=== PATIENT | female | born 2000 | race Caucasian/White ===

== ENCOUNTER 2021-04-15 00:54 | Inpatient (IN) | payer SELFPAY ==
[2021-04-15] VITALS (23 sets, daily range): BP systolic 122–152; BP diastolic 68–96; PULSE 58–107; RESP 15–24; TEMP 35.9–37.1; O2SAT 93–100; BMI 35.6
--- NOTE | 2021-04-15 | XR_ITS ---
WS: [id number] Exam: XR ankle RT 2V [id number] Date/Time of Exam: 04/15/2021 12:00 AM Reason For Exam: ORIF ANKLE Intraoperative C-arm images in the lateral and AP projections are read submitted for evaluation. There is plate and screw fixation involving a fracture of the distal fibula which is in satisfactory alignment for healing. 2 screws now stabilized the fractured medial malleolus in satisfactory alignme nt. Posterior tibial shelf fracture is partially obscured. XR/XR ankle RT 2V [id number] IMPRESSION: 1. ORIF involving fractures of the medial and lateral malleoli. Both are in goo d position for healing.
--- NOTE | 2021-04-15 | SCC_ITS ---
Procedure Done: Open reduction internal fixation right medial and lateral malleolus 18.6 seconds of fluoroscopic guidance, for a cumulative dose of 0.60 mGy, was provided to Dr. Ellis by the radiology department. C-arm images of the RIGHT ankle were saved for the patient's permanent record. [facility]PITALRosanna
--- NOTE | 2021-04-15 01:00 | XRR_ITS ---
PROCEDURE INFORMATION: Exam: XR Right Ankle Exam date and time: 04/15/2021 1:00 AM Age: 21 years old Clinical indication: Injury or trauma; Blunt trauma; Right; Patient HX: Fall just [employer]. C/O pain. Ankle wrapped in makeshift splint upon arrival. TECHNIQUE: Imaging protocol: XR Right ankle. Views: 3 or more views. COMPARISON: No relevant prior studies available. FINDINGS: Bones/joints: There is a lateral malleolus fracture with angulation. There is a medially displaced medial malleolus fracture. There is lateral dislocation at the tibiotalar joint. Soft tissues: Normal. XR/XR ankle RT min 3V* [id number] IMPRESSION: 1. There is a lateral malleolus fracture with angulation. 2. There is a medially displaced medial malleolus fracture. 3. There is lateral dislocation at the tibiotalar joint.
--- NOTE | 2021-04-15 01:01 | ECG_ITS ---
[facility] Test Date: 2021-04-15 Pat Name: Vicki Marcos Department: Room: Gender: Female Button Tufter: : 2000 Requested By: Kenneth Amos Order Number: [id number] Fermin MD: Lazarus Mathews M.D. Measurements Intervals [place] Rate: 92 P: 22 DE: 113 QRS: 70 QRSD: 84 T: 15 QT: 361 QTc: 448 Interpretive Statements SINUS RHYTHM WITH SHORT DE INTERVAL No previous ECG available for comparison Electronically Signed On 04-15-2021 17:32:06 CDT by Lazarus Mathews M.D. [id number] f
--- NOTE | 2021-04-15 01:02 | ED_ITS ---
HPI - Syncope General: Chief Complaint: Syncope Stated Complaint: FALL Time Seen by Provider: 04/15/21 00:57 History of Present Illness: HPI narrative: This patient is a 21-year-old female that lives outside of [place] presents to the emergency department with right ankle pain. Reportedly the patient was standing and cooking became dizzy so she went to sit down actually tripped over the dog and fell. Patient denies any loss of consciousness. Patient states that she has had issues with dizziness and syncopal episodes in the past. Patient states she did not want to come to the hospital. And [place] advised EMS that she would like to go to [facility] and patient states that the ambulance service advised the patient would be best to come to [place]. Patient states that her last menstrual period was 01 March patient states her periods are always irregular and sometimes pretty heavy. Will do medical evaluation treat as needed MD complaint: felt faint Associated symptoms: Deny abdominal pain, chest pain, fever(s), headache(s), lightheadedness or nausea Review of Systems General: Reports: 10 or more systems reviewed and unremarkable except in HPI and below Const: Denies: fever(s), chills, body aches or fatigue Eyes: Denies: change in vision or blurry vision ENMT: Denies: throat pain, hoarseness or mouth pain Card: Denies: chest pain, palpitations, irregular heart rhythm, edema, swelling of feet/ankles or lightheadedness Resp: Denies: dyspnea, productive cough, non-productive cough, wheezing or pain on inspiration GI: Denies: abdominal pain, nausea or vomiting : Denies: flank pain, difficulty voiding, dysuria, urinary frequency, urinary urgency or urinary hesitancy Musc: Reports: extremity pain; Denies: neck pain, back pain, extremity swelling, joint pain, joint swelling, joint redness, joint warmth or limited range of motion Skin/Breast: Denies: rash, pruritus, erythema or skin tenderness Neuro: Reports: dizziness; Denies: headache(s), numbness in extremities or weakness in extremities Psych: Denies: anxiety or depression Physical Exam Const: COMMON NORMALS: no acute distress, average body habitus, patient oriented x3, no limitations, healthy appearing, alert and well nourished HENMT: COMMON NORMALS: normocephalic, atraumatic, hearing grossly normal bilaterally, external ears normal, EAC's normal, TM's normal bilaterally, Normal external nose present, Normal nasal mucous membranes and turbinates present, moist oral mucous membranes, oropharynx normal, dentition normal and gingiva normal HEAD & SCALP: normocephalic and atraumatic NOSE: Normal external n ose present and Normal nasal mucous membranes and turbinates present EXTERNAL EAR: Yes external ears normal EXTERNAL AUDITORY CANAL: EAC's normal TYMPANIC MEMBRANE: TM's normal bilaterally Neck/C-Spine: COMMON NORMALS: full ROM, no lymphadenopathy, supple, no meningeal signs, no JVD, Thyroid normal and No carotid bruits THYROID: Thyroid normal Chest: COMMONS NORMALS: normal inspection of the chest, normal palpation of entire chest wall, normal inspection of the breasts and normal palpation of the breasts Breast/axilla inspection: Yes normal inspection of the breasts BREAST/AXILLA PALPATION: Yes normal palpation of the breasts Resp: COMMON NORMALS: normal respiratory effort, No retractions, No use of accessory muscles, clear to auscultation bilaterally and percussion normal AUSCULTATION: clear to auscultation bilaterally PERCUSSION: percussion normal Cardio: COMMON NORMALS: no JVD, regular rate, regular rhythm, S1 normal heart sound present, S2 normal heart sound present, No gallops present (Cardio), No clicks present (Cardio), No murmurs present (Cardio), No rub (Cardio) and Luz Maria pheral pulses 2+ throughout RATE: regular rate RHYTHM: regular rhythm HEART SOUNDS: S1 normal heart sound present and S2 normal heart sound present PERIPHERAL PULSES: Peripheral pulses 2+ throughout GI: COMMON NORMALS: Normal to inspection, nondistended, normoactive bowel sounds present, Soft to palpation, non-tender, No hepatosplenomegaly present, no masses and no bruits PALPATION: Yes Soft to palpation and Yes No hepatosplenomegaly present : COMMON NORMALS: Yes no CVA tenderness BLADDER/KIDNEY EXAM: Yes no CVA tenderness Back/Pelvis: COMMON NORMALS: no CVA tenderness, thoracic and lumbar spine normal to inspection, no thoracic nor lumbar tenderness, thoraco-lumbar ROM normal and straight leg raise negative bilaterally Extremity: COMMON NORMALS: capillary refill normal, no joint enlargement, no clubbing, cyanosis or edema, no calf tenderness and no pedal edema RIGHT LOWER EXTREMITY: Yes foot & digits Right ankle: Yes inspection (Patient complains of pain with range of motion. Patient has splint intact ) Neuro: COMMON NORMALS: patient oriented x3 SENSORIUM/ORIENTATION: Yes alert MENINGEAL SIGNS: Yes no meningeal signs Procedures Orthopedic Joint Reduction Joint #1: Time Out Performed: Yes Side: right Joint Reduction Location: ankle Analgesia: procedural sedation Technique used: direct manipulation Post-reduction neuro exam: intact Post-reduction vascular: intact Post Reduction X-Ray Obtained: Yes Post Reduction X-Ray Results: reduced Splint Applied: Yes Patient Tolerated Procedure: well Orthopedic Splinting/Casting Injury #1: Side: right Lower Extremity Injury Location: ankle Lower Extremity Immobilizer: posterior splint Procedural Sedation Indication: fracture/dislocation reduction Presedation Evaluation: Clear to auscultate class I airway. Consent given by patient ASA Class: I Time of Last PO Intake: 20:30 Preparation: cardiac nurse specialist applied, pulse oximeter, capnometry used, supplemental O2 applied, reversal agents at bedside, suction/airway equipment at bedside and IV secured Midazolam: IV Midazolam dose (mg): 1 Ketamine: IV Ketamine dose (mg): 100 Patient Tolerated Procedure: well Complications: none Additional Comments: Patient was given 1 mg of Dilaudid, 1 mg of Versed, and 100 mg of ketamine. Patient tolerated well without difficulty. Course Reevaluation(s): Reevaluation #1: I discussed at length with patient and about findings of a bimalleolar fracture with dislocation. She is agreeable for reduction and admission to the hospital. Time: 02:18 Reevaluation #2: Conscious sedation for patient. With reduction of right ankle dislocation fracture. Patient will have surgical repair fracture in the morning with Dr. Ellis. Time: 02:35 Consultations: Consultation #1: I did discuss at length with Dr. Ellis orthopedics. He agrees for us to straighten leg and place in posterior splint. Admitted to the hospital and he will take to the OR in the morning. Time: 02:18 Vital Signs: Vital signs: Vital Signs Temperature 97.6 F 04/15/21 00:57 Pulse Rate 86 04/15/21 02:16 Respiratory Rate 19 H 04/15/21 02:16 Blood Pressure 122/68 04/15/21 02:16 Pulse Oximetry 100 04/15/21 02:16 MDM - Syncope Lab Data: Labs: Lab Results 04/15/21 04/15/21 Range/Units 01:03 01:03 WBC 13.0 H (4.0-10.0) 10^3/ uL RBC 4.29 (4.1-5.3) 10^6/u L Hgb 12.4 (11.5-15.3) g/dL Hct 38.9 (37.0-47.0) % MCV 90.7 (81-99) fL MCH 28.9 (28.0-34.0) pg MCHC 31.9 (30.0-36.0) g/dL RDW 13.1 (12.1-15.1) % Plt Count 232 (130-400) 10^3/c mm MPV 10.3 (7.4-10.4) fL Neut % (Auto) 78.7 % Lymph % (Auto) 13.9 % Beckham % (Auto) 5.6 % Eos % (Auto) 0.8 % Baso % (Auto) 0.4 % Neut # (Auto) 10.25 H (1.8-7.7) 10^3/u L Lymph # (Auto) 1.8 (0.8-4.8) 10^3/u L Beckham # (Auto) 0.7 (0.2-0.9) 10^3/u L Eos # (Auto) 0.1 (0.0-0.8) 10^3/u L Baso # (Auto) 0.1 (0.0-0.1) 10^3/u L Nucleated RBC % (a uto) 0 % Nucleated RBCs # 0.0 /100WBC Sodium 138 (136-145) mmol/L Potassium 3.7 (3.5-5.1) mmol/L Chloride 101 (98-107) mmol/L Carbon Dioxide 23 (22-29) mmol/L Anion Gap 17.7 (5-19) BUN 9 (6-20) mg/dL Creatinine 0.7 (0.5-0.9) mg/dL GFR Calculation 105.6 (90-130) mL/min Glucose 187 H (65-115) mg/dL Calculated Osmolal ity 290 (285-295) mOsm/k g Calcium 8.9 (8.5-10.5) mg/dL EKG Data^: EKG 1: Attestation: I personally reviewed and interpreted this EKG as follows: EKG interpretation date: 04/15/21 EKG interpretation time: 01:13 Prior EKG tracings: not available for review Interpretation: Sinus rhythm heart rate 92 Discharge Plan Discharge Patient Disposition: Placed in Observation Clinical Impression: Bimalleolar fracture of right ankle, Postural dizziness with near syncope, Closed dislocation of ankle Coding Level of Care Code ED Capacity Management Specialist for Chg Fwd Exam Comprehensive
[2021-04-15 01:10] LABS: Basophils # 0.1 10^3/uL (0.0-0.1); Basophils % 0.4 %; Eosinophils # 0.1 10^3/uL (0.0-0.8); Eosinophils % 0.8 %; Hematocrit 38.9 % (37.0-47.0); Hemoglobin 12.4 g/dL (11.5-15.3); Lymphocytes # 1.8 10^3/uL (0.8-4.8); Lymphocytes % 13.9 %; Mean Corpuscular HGB Conc 31.9 g/dL (30.0-36.0); Mean Corpuscular Hemoglobin 28.9 pg (28.0-34.0); Mean Corpuscular Volume 90.7 fL (81-99); Mean Platelet Volume 10.3 fL (7.4-10.4); Monocytes # 0.7 10^3/uL (0.2-0.9); Monocytes % 5.6 %; Neutrophils # 10.25 10^3/uL (1.8-7.7); Neutrophils % 78.7 %; Nucleated Red Blood Cells % 0 %; Platelet Count 232 10^3/cmm (130-400); Red Blood Count 4.29 10^6/uL (4.1-5.3); Red Cell Distribution Width 13.1 % (12.1-15.1)
[2021-04-15 01:28] LABS: Anion Gap 17.7 (5-19); Blood Urea Nitrogen 9 mg/dL (6-20); Calcium 8.9 mg/dL (8.5-10.5); Carbon Dioxide 23 mmol/L (22-29); Chloride 101 mmol/L (98-107); Glomerular Filtration Rate 105.6 mL/min (90-130); Glucose 187 mg/dL (65-115); Osmolality Calculated 290 mOsm/kg (285-295); Potassium 3.7 mmol/L (3.5-5.1); Sodium 138 mmol/L (136-145)
[2021-04-15] MEDS: midazolam 1 mg/mL INJ 2 mL IVP (02:34)
[2021-04-15] MEDS: HYDROmorphone 1 mg/mL INJ 1 mL IVP (02:35)
--- NOTE | 2021-04-15 02:39 | XRR_ITS ---
PROCEDURE INFORMATION: Exam: XR Right Ankle Exam date and time: 04/15/2021 2:39 AM Age: 21 years old Clinical indication: Injury or trauma; Fall; Fracture, traumatic; Displaced; Ankle; Right; Malleolus, lateral and malleolus, medial; Patient HX: Check S/P reduction. ; Additional info: Post reduction TECHNIQUE: Imaging protocol: XR Right ankle. Views: 1 or 2 views. COMPARISON: CR (LOW EXM, ) 04/15/2021 1:06 AM FINDINGS: Tubes, catheters and devices: Splint material has been placed. Bones/joints: There is partial reduction of medial and lateral malleolus fractures and tibiotalar dislocation. Soft tissues: Normal. XR/XR ankle RT 2V [id number] IMPRESSION: There is partial reduction of medial and lateral malleolus fractures and tibiotalar dislocation.
[2021-04-15 04:29] LABS: Add Urine Microscopic? NO; Charge for UA Resulting for Rev
[2021-04-15 04:33] LABS: Bilirubin Urine Neg (Negative); Blood Urine Neg (Negative); Glucose Urine UA Norm (Normal); Ketones Urine Negative (Negative); Leukocyte Esterase Urine Negative (Negative); Nitrate Urine Negative (Negative); Protein Urine Neg (Negative); Urine Appearance Clear (CLEAR); Urine Color Yellow (Yellow); Urobilinogen Urine Norm (Negative); pH Urine 5 (5-7)
[2021-04-15 04:39] LABS: Amphetamines Screen Urine Negative (Negative); Barbiturates Screen Urine Negative (Negative); Benzodiazepines Screen Urine Negative (Negative); Cocaine Screen Urine Negative (Negative); Opiate Screen Urine Positive (Negative); PCP Screen Urine Negative (Negative); THC Screen Urine Positive (Negative)
[2021-04-15 04:49] LABS: HCG Qualitative Urine. Negative (Negative)
--- NOTE | 2021-04-15 05:06 | USCV_ITS ---
Vicki Marcos Age: 21 Gender: F : 2000 Exam Date: 04/15/2021 06:11 Ordering Phys: Gabi Egan MD Technologist: Sarahi Louis Exam Location: [facility] [place] Indication: SYNCOPE BP: 130 / 79 HR: 65 Rhythm: Sinus Technical Quality: Adequate MEASUREMENTS (Male / Female) Normal Values 2D ECHO LV Diastolic Diameter PLAX 3.9 cm 4.2 - 5.9 / 3.9 - 5.3 cm LV Systolic Diameter PLAX 2.7 cm IVS Diastolic Thickness 1.3 cm 0.6 - 1.0 / 0.6 - 0.9 cm IVS Systolic Thickness 2.5 cm LVPW Diastolic Thickness 1.3 cm 0.6 - 1.0 / 0.6 - 0.9 cm LVPW Systolic Thickness 2.0 cm LVOT Diameter 2.0 cm LV Ejection Fraction 2D Teich 54.7 % LV Ejection Fraction MOD 2C 64.6 % LV Ejection Fraction 2C AL 67.2 % LA Diameter 3.3 cm LA Width 2.5 cm LA Height 4.1 cm RA Width 2.5 cm RA Height 4.0 cm Aorta at Sinotubular Diameter 2.3 cm M-MODE LV Diastolic Diameter MM 3.1 cm 4.2 - 5.9 / 3.9 - 5.3 cm LV Systolic Diameter MM 1.8 cm LV Ejection Fraction MM Teich 72.5 % IVS Diastolic Thickness MM 1.0 cm 0.6 - 1.0 / 0.6 - 0.9 cm IVS Systolic Thickness MM 1.9 cm LVPW Diastolic Thickness MM 1.2 cm 0.6 - 1.0 / 0.6 - 0.9 cm LVPW Systolic Thickness MM 1.3 cm Aortic Annulus Diameter 2.6 cm LA Ao Ratio MM 1.4 MV E Point Septal Separation 0.3 cm DOPPLER AV Peak Velocity 156.0 cm/s LVOT Peak Velocity 75.0 cm/s AV Area Cont Eq vti 1.4 cm squared AV Area Cont Eq pk 1.5 cm squared MV Peak Velocity 111.0 cm/s MV Area PHT 2.7 cm squared Mitral E to A Ratio 2.1 MV E' Velocity 61.0 cm/s Mitral E to MV E' Ratio 6.7 Mitral E to LV E' Lateral Ratio 5.4 Mitral E to LV E' Septal Ratio 8.7 TR Peak Velocity 124.0 cm/s TR Peak Gradient 6.2 mmHg TV Peak E Velocity 65.0 cm/s Right Atrial Pressure 3.0 mmHg Pulmonary Artery Systolic Pressu 9.2 mmHg PV Peak Velocity 123.0 cm/s RV Acceleration Time 0.1 s RV Ejection Time 0.4 s RV AcT/ET 0.3 FINDINGS Left Ventricle Normal left ventricular size. LV systolic function is normal with EF of 55-60%. No regional wall motion abnormalities. Normal diastolic filling pattern. Right Ventricle The right ventricle is normal in size and function. Right Atrium The right atrium is normal in size. Left Atrium The left atrium is normal in size. Mitral Valve Structurally normal mitral valve without significant stenosis or prolapse. There is trace mitral regurgitation. Aortic Valve Structurally normal aortic valve without significant sclerosis or stenosis. There is no aortic regurgitation. Tricuspid Valve Structurally normal tricuspid valve without significant stenosis or regurgitation. Insufficient TR jet to calculate RVSP Pulmonic Valve Structurally normal pulmonic valve without significant stenosis. There is trace pulmonic regurgitation. Pericardium Normal pericardium without effusion. Aorta Normal ascending aorta dimension. CONCLUSIONS LV systolic function is normal with EF of 55-60% Diastolic function is normal Trace mitral regurgitation. Trace pulmonic regurgitation No comparison studies are available Lazarus Mathews MD (Electronically Signed) Final Date: 15 April 2021 17:47 S
--- NOTE | 2021-04-15 05:07 | P.HP_ITS ---
Providers/Chief Complaint Admitting Physician: Gabi Egan Chief Complaint: FALL History of Present Illness Vicki Marcos is a 21 year old female With a past medical history significant for anxiety, partial dizziness with prior episode of syncope who presented to the hospital with syncopal event and right lower extremity pain. Patient stated that while in the kitchen making dinner she became very nauseous and lightheaded. She went to sit down however Does not recall any events afterwards. She was told by her friend that she had tripped over her dog and fell. Loss of consciousness lasted briefly. No seizure-like activity. On a rrival an right ankle x-ray showed a lateral malleolus fracture with angulation, medially displaced medial malleolar fracture and a lateral dislocation at the tibiotalar joint. Orthopedic surgery was consulted. Prior to that patient's this location was reduced after receiving Dilaudid and ketamine. Laboratory workup showed a WBC of 13.0, hemoglobin 12.4, hematocrit 38.9 and a platelet count of 232. Sodium 138, potassium 3.7, chloride 101, bicarb 23, BUN 9 and creatinine is 0.7. Urinary drug screen positive for opioids and marijuana. Urinalysis was negative. Review of Systems General: Reports: 10 or more systems reviewed and unremarkable except in HPI and below Medications/Allergies Allergies Allergy/AdvReac Type Severity Reaction Status Date / Time No Known Allergies Allergy Verified 03/02/21 15:15 Vitals/I&O/Wt Last Vital Signs Temp 97.8 F 04/15/21 04:00 Pulse 83 04/15/21 04:00 Resp 20 H 04/15/21 04:00 BP 130/79 04/15/21 04:00 Pulse Ox 96 04/15/21 04:00 Weight last 48 hrs Weight 116.12 kg Physical Exam Narrative: EXAM NARRATIVE: General-alert awake and oriented x3 HEENT-grossly unremarkable CVS-normal sinus rhythm Chest-nonlabored respirations Abdomen-soft nontender nondistended Extremities-right lower extremity splint and Edward wrap in place Urinary Catheter Management^: Garnett: Cath Placed During This Visit: yes Urinary Catheter Date of Insertion: 04/15/21 Urinary Catheter Time of Insertion: 04:26 Data : 04/15/21 01:03 04/15/21 01:03 A&P Assessment and plan (1) Bimalleolar fracture of right ankle: Status: Acute (2) Syncopal episodes: Status: Acute Bimalleolar fracture with L. tibiotalar joint dislocation Partially Reduced in ER w/right post splint placement Pain control NPO Orthopedic surgery on board PT consult Syncopal episode Etiology unclear Will obtain ECHO Records not available for prior EKG - NSR, normal QT interval Monitor on telemetry TSH /A1C in am DVT ppx - Per ortho - like OR this am Attestations Medical Necessity Statement*: Anticipate less than 2 midnight stay in hospital for eval and treatment Time Spent in Patient Care: Greater than 35 minutes (>than 50% of time spent in counselling and/or direct pt care on unit) . Coding Level of Care Code Acute Copper Plate Lithographer for Marvin Garcia Diagnoses Bimalleolar fracture of right ankle S82.841A Syncopal episodes R55
[2021-04-15] MEDS: sodium chloride 0.9% 1,000 ML 75 ML IV (06:45)
--- NOTE | 2021-04-15 07:04 | PM.CONSULT ---
Providers/Reason For Consult Consulting Physician/Specialty*: Zackary Ellis MD; orthopedic surgery Reason for Consult*: Right trimalleolar ankle fracture Attending Physician: Gabi Egan History of Present Illness History of Present Illness Vicki Marcos is a 21 year old female who sustained a syncopal episode at her kitchen sink yesterday. She describes feeling nauseous vomiting losing consciousness and falling to the ground and awakening with the deformity and pain in her ankle. She was taken by EMS to our emergency room where radiographs revealed a trimalleolar ankle fracture. Attempted closed reduction was performed. She is admitted to orthopedics for definitive management of the fracture. Meds/Allergies Home Medications and Allergies Allergies Allergy/AdvReac Type Severity Reaction Status Date / Time No Known Allergies Allergy Verified 03/02/21 15:15 Current Medications Current Medications Generic Name Dose Route Start Last Admin Trade Name Freq PRN Reason Stop Dose Admin Sodium Chloride 1,000 mls @ 75 mls/hr 04/15/21 05:15 04/15/21 06:45 Sodium Chloride 0.9% IV 75 mls/hr .[id number] PATRICE Administration Vitals/I&O/Wt Last Vital Signs Temp 97.8 F 04/15/21 04:00 Pulse 83 04/15/21 04:00 Resp 20 H 04/15/21 04:00 BP 130/79 04/15/21 04:00 Pulse Ox 96 04/15/21 04:00 04/14/21 04/15/21 04/15/21 22:59 06:59 14:59 Output Total 100 / 100 Balance -100 / -100 Weight last 48 hrs Weight 256 lb Physical Exam Narrative: EXAM NARRATIVE: HEAD: Normocephalic/atraumatic. NECK: Soft supple nontender. HEART: Normal heart sounds, regular rhythm. CHEST: Clear to auscultation. ABDOMEN: Soft nontender nondistended. The patient's right ankle was splinted. She will minimally move her toes due to pain but has good capillary refill in the tips of her digits. Sensation is intact to the tips of the digits Urinary Catheter Management^: Garnett: Cath Placed During This Visit: yes Reason for Continuing Indwelling Catheter: Perioperative Use in Selected Surgeries Urinary Catheter Date of Insertion: 04/15/21 Urinary Catheter Time of Insertion: 04:26 Data Imaging^: Xray Ortho: My impression: 3 views the right ankle are reviewed labeled pre and post reduction. The patient has a fracture dislocation of the right ankle consisting of trimalleolar ankle fracture which is incompletely reduced on postreduction films. A&P Assessment and plan (1) Trimalleolar fracture of right ankle: The patient had unstable right ankle fracture. I told the patient to ensure the best long-term function and minimize risk of arthritis surgery be warranted to aligned the talus in the mortise. She is young reasonably healthy I think this can be done acutely with minimal risk. I discussed risk of bleeding and infection. Discussed risk of wound breakdown which in a patient in good health is is minimal. I discussed possible painful hardware. I discussed possibility of stiffness and future degenerative changes. I discussed the possible need for further procedures. I discussed unlikely anesthetic risk. She understands all these and agrees to proceed we'll proceed to the OR sometime today. Status: Acute Coding Level of Care Code Acute Sheet Rock Installation Helper for Marvin Garcia Diagnoses Trimalleolar fracture of right ankle S82.851A
[2021-04-15] MEDS: HYDROcodone-acetaminophen 5-325 mg Tablet 1 TAB PO (08:15)
--- NOTE | 2021-04-15 11:13 | PC.NURSE ---
surgery pt was taken down for surgery.
--- NOTE | 2021-04-15 11:18 | PM.PN ---
Subjective Subjective: Interval history: Patient seen postoperatively. Mildly groggy. Complaining of pain. Vitals/I&O/Wt Last Vital Signs Temp 97.8 F 04/15/21 07:55 Pulse 75 04/15/21 07:55 Resp 16 04/15/21 07:55 BP 128/78 04/15/21 07:55 Pulse Ox 99 04/15/21 07:55 04/14/21 04/15/21 04/15/21 22:59 06:59 14:59 Output Total 100 / 100 Balance -100 / -100 Weight last 48 hrs Weight 116.12 kg Physical Exam Narrative: EXAM NARRATIVE: General-alert awake and oriented x3 HEENT-grossly unremarkable CVS-normal sinus rhythm Chest-nonlabored respirations Abdomen-soft nontender nondistended Extremities-right lower extremity in surgical splint Urinary Catheter Management^: Garnett: Cath Placed During This Visit: yes Reason for Continuing Indwelling Catheter: Perioperative Use in Selected Surgeries Urinary Catheter Date of Insertion: 04/15/21 Urinary Catheter Time of Insertion: 04:26 Data : 04/16/21 01:58 04/16/21 01:58 A&P Assessment and plan (1) Bimalleolar fracture of right ankle: Status: Acute (2) Syncopal episodes: Status: Acute Bimalleolar fracture with L. tibiotalar joint dislocation: Postoperative day 0. Appreciate orthopedics recommendation. Luz Maria-operative antibiotics, Physical therapy, pain control, anticoagulation as per orthopedic team. Incentive spirometry. Monitor hemoglobin. Syncopal episode: Etiology unclear. Unlikely seizure as was witnessed. Will obtain ECHO, c/w telemetry. TSH, A1c. Urine drug screen results appreciated. Regular diet. Anticoagulation as per orthopedic team. Famotidine for PUD prophylaxis. Attestations Medical Necessity Statement*: Vicki Bonds is being changed to inpatient status as stay will now exceed 2 midnights. Ongoing hospital care is necessary for bimalleolar fracture with left fibular talar joint dislocation requiring open fixation, syncope under evaluation. Time Spent in Patient Care: Greater than 35 minutes (>than 50% of time spent in counselling and/or direct pt care on unit). Coding Level of Care Code Acute Workforce Management Coordinator for Marvin Fwnazanin Diagnoses Bimalleolar fracture of right ankle S82.841A Syncopal episodes R55
--- NOTE | 2021-04-15 11:33 | P.ANESASSM_ITS ---
Pre-Anesthetic Assessment Pre-Anesthetic Assessment: Height/Weight: Height 1.8 m Weight 116.12 kg Temp Pulse Resp BP Pulse Ox 96.7 F L 83 18 147/85 100 04/15/21 11:20 04/15/21 11:20 04/15/21 11:20 04/15/21 11:20 04/15/21 11:20 Proposed Procedure: Operation Date: 04/15/21 12:00 Proposed Procedures p ORIF Ankle(Right) - Zackary Ellis MD Was Beta Ramírez taken within 24 hours: N/A Was Clonidine taken within 24 hours: N/A Last intake: Intake Last Liquid Date 04/14/21 Last Liquid Time 23:30 Last Solid Date 04/14/21 Last Solid Time 23:30 Social: Social History: No alcohol and No tobacco Exam: Pre-Anes Outpt Exam: alert, oriented x 3, clear to auscultation b ilaterally and regular rate & rhythm Airway: Submandibular: WNL Cervical ROM: WNL MP: 2 Dentition: Full History/ROS: No significant history except as noted Metabolic: Metabolic: Morbid obesity Neuropsych: Comments: Syncope Anesthetic Plan: ASA status: 2 Anesthesia: General Risk of > 500 ml blood loss (7ml/kg in children): No Meds/Allergies Current Medications: Current Medications Generic Name Dose Route Start Last Admin Trade Name Freq PRN Reason Stop Dose Admin Hydrocodone Bitart /Acetaminophen 1 tab 04/15/21 05:04 04/15/21 08:15 Hydrocodone-Acet aminophen 5-325 Mg Tablet PO 1 tab Q4H PRN Administration MODERATE TO SEVER E PAIN Sodium Chloride 1,000 mls @ 75 ml s/hr 04/15/21 05:15 04/15/21 06:45 Sodium Chloride 0.9% IV 75 mls/hr .[id number] PATRICE Administration Data Anesthesia CBC & Chem 7: 04/15/21 01:03 04/15/21 01:03 Other Labs: Laboratory Results - last 48 hr 04/15/21 04/15/21 04/15/21 01:03 01:03 04:22 WBC 13.0 H RBC 4.29 Hgb 12.4 Hct 38.9 MCV 90.7 MCH 28.9 MCHC 31.9 RDW 13.1 Plt Count 232 MPV 10.3 Neut % (Auto) 78.7 Lymph % (Auto) 13.9 Mcmullen % (Auto) 5.6 Eos % (Auto) 0.8 Baso % (Auto) 0.4 Neut # (Auto) 10.25 H Lymph # (Auto) 1.8 Mcmullen # (Auto) 0.7 Eos # (Auto) 0.1 Baso # (Auto) 0.1 Nucleated RBC % (auto) 0 Nucleated RBCs # 0.0 Sodium 138 Potassium 3.7 Chloride 101 Carbon Dioxide 23 Anion Gap 17.7 BUN 9 Creatinine 0.7 GFR Calculation 105.6 Glucose 187 H Calculated Osmolality 290 Calcium 8.9 HCG, Qual Urine Color Yellow Urine Appearance Clear Urine pH 5 Ur Specific [place] 1.020 Urine Protein Neg Urine Glucose (UA) Norm Urine Ketones Negative Urine Blood Neg Urine Nitrate Negative Urine Bilirubin Neg Urine Urobilinogen Norm Ur Leukocyte Esterase Negative Urine Opiates Screen Ur Barbiturates Screen Ur Phencyclidine Scrn Ur Amphetamines Screen U Benzodiazepines Scrn Urine Cocaine Screen U Marijuana (THC) Screen 04/15/21 04/15/21 04:22 04:22 WBC RBC Hgb Hct MCV MCH MCHC RDW Plt Count MPV Neut % (Auto) Lymph % (Auto) Mcmullen % (Auto) Eos % (Auto) Baso % (Auto) Neut # (Auto) Lymph # (Auto) Mcmullen # (Auto) Eos # (Auto) Baso # (Auto) Nucleated RBC % (auto) Nucleated RBCs # Sodium Potassium Chloride Carbon Dioxide Anion Gap BUN Creatinine GFR Calculation Glucose Calculated Osmolality Calcium HCG, Qual Negative Urine Color Urine Appearance Urine pH Ur Specific [place] Urine Protein Urine Glucose (UA) Urine Ketones Urine Blood Urine Nitrate Urine Bilirubin Urine Urobilinogen Ur Leukocyte Esterase Urine Opiates Screen Positive H Ur Barbiturates Screen Negative Ur Phencyclidine Scrn Negative Ur Amphetamines Screen Negative U Benzodiazepines Scrn Negative Urine Cocaine Screen Negative U Marijuana (THC) Screen Positive H Cardiac Studies: No Data to Display
[2021-04-15] MEDS: sodium chloride 0.9% 1,000 ML 30 ML IV (11:47)
--- NOTE | 2021-04-15 13:40 | PM.OP ---
Operative Report Date of procedure: April 15, 2021 Pre-op Diagnosis: Right trimalleolar ankle fracture Post-op diagnosis: same Post-op Findings: Same Procedure Done: Open reduction internal fixation right medial and lateral malleolus Surgeon: Zackary Ellis Anesthesia: General Estimated blood loss (mL): 10 Tourniquet time (min): 50 Findings: The patient had oblique fracture of the beginning at the level of the mortise and extending slightly proximally. She had a oblique fracture of the lateral malleolus at the level of the mortise. There is posterior lateral subluxation of the talus in the mortise initially. Condition: stable Disposition: PACU Brief History: The patient is a 22-year-old following with resulting right trimalleolar ankle fracture/dislocation. As she was healthy with a good soft tissue envelope surgical stabilization was entertained acutely. Procedure: The patient was taken to the operating room and given a general anesthesia. She was given 2 g of Ancef. She was prepped and draped in the supine position with a tourniquet on the right thigh. The tourniquet was inflated for 50 mmHg. Initially a 4 cm long incision was made centered over the medial malleolus. Dissection was carried down bluntly identified branches of the saphenous vein. The fracture was identified and held reduced with a towel clamp. 2 partially threaded 4.0 mm Asnis screws with washers were passed from the tip of the medial malleolus proximally maintaining reduction of that fracture. Next a 5 cm long incision made from the tip of the lateral malleolus proximally. The oblique fracture was held reduced with a clamp and fixed initially with a single anterior posteriorly partially threaded screw. A posterior lateral neutralization was placed. It was fixed with 3 nonlocking screws proximally and 1 nonlocking and locking screws distally. A third nonlocking screw was placed through the third hole in the bottom traversing the fracture site. Wounds were irrigated with saline. Deep tissues were closed with 2-0 Vicryl. The skin was closed with skin imani. Sterile dressings were applied. The patient was placed in a postop boot, extubated, and taken to recovery in stable condition.
--- NOTE | 2021-04-15 14:01 | ANE.PACU2 ---
Inpatient post-anesthesia follow up: Airway intact: Yes Vital signs: Temperature 98.5 F Pulse Rate [Monito r] 100 Pulse Rate 63 Respiratory Rate 16 Blood Pressure 150/79 Pulse Oximetry 96 Oxygen Delivery Me thod Room Air Oxygen Flow Rate 6 Fraction of Inspir ed Oxygen Hydration adequate: Yes Nausea and vomiting: No Pain level: 3 Mental status: Baseline
[2021-04-15] MEDS: ondansetron 2 mg/ML SDV 2 mL 4 MG IVP (15:16)
[2021-04-15] MEDS: oxyCODONE 5 mg IR Tab/Cap PO ×2 (15:43→22:08)
[2021-04-15 16:21] LABS: Iron 43 ug/dL (37-145); Percent Saturation 13.7 % (20-50); Total Iron Binding Capacity 312 mcg/dl; Unsaturated Iron Binding 269 ug/dL (112-347)
[2021-04-15] MEDS: acetaminophen 1,000 MG/100 ML PIGGYBACK 400 MG IV (17:45)
[2021-04-15] MEDS: LORazepam 0.5 mg Tablet PO (17:45)
[2021-04-16] VITALS (11 sets, daily range): BP systolic 116–150; BP diastolic 75–95; PULSE 72–92; RESP 14–24; TEMP 36.4–37.1; O2SAT 97–99
[2021-04-16] MEDS: morphine 4 mg/mL SDV 1 mL 2 MG IVP ×2 (01:00→08:02)
[2021-04-16 02:43] LABS: Basophils % 0.3 %; Eosinophils % 0.2 %; Hematocrit 40.5 % (37.0-47.0); Hemoglobin 12.6 g/dL (11.5-15.3); Lymphocytes # 1.1 10^3/uL (0.8-4.8); Lymphocytes % 8.7 %; Mean Corpuscular HGB Conc 31.1 g/dL (30.0-36.0); Mean Corpuscular Hemoglobin 28.8 pg (28.0-34.0); Mean Corpuscular Volume 92.5 fL (81-99); Mean Platelet Volume 10.2 fL (7.4-10.4); Monocytes # 0.9 10^3/uL (0.2-0.9); Monocytes % 7.3 %; Nucleated Red Blood Cells % 0 %; Platelet Count 194 10^3/cmm (130-400); Red Blood Count 4.38 10^6/uL (4.1-5.3); Red Cell Distribution Width 12.9 % (12.1-15.1); White Blood Count 12.4 10^3/uL (4.0-10.0)
[2021-04-16] MEDS: oxyCODONE 5 mg IR Tab/Cap PO ×2 (02:43→06:27)
[2021-04-16 03:05] LABS: Estmated Average Glucose 114; Hemoglobin A1C 5.6 % (4.0-6.0)
[2021-04-16 03:14] LABS: Alanine Aminotransferase 9 U/L (0-33); Albumin Level 3.8 g/dL (3.5-5.2); Alkaline Phosphatase 73 IU/L (35-105); Anion Gap 17.3 (5-19); Aspartate Amino Transferase 8 U/L (0-32); Blood Urea Nitrogen 5 mg/dL (6-20); Calcium 9.5 mg/dL (8.5-10.5); Carbon Dioxide 23 mmol/L (22-29); Chloride 100 mmol/L (98-107); Globulin 3.4 g/dL (1.3-4.6); Glomerular Filtration Rate 201.5 mL/min (90-130); Glucose 124 mg/dL (65-115); Osmolality Calculated 281 mOsm/kg (285-295); Potassium 4.3 mmol/L (3.5-5.1); Sodium 136 mmol/L (136-145); Thyroid Stimulating Hormone 1.04 uIU/mL (0.27-4.20); Total Bilirubin 0.4 mg/dL (0.15-1.2); Total Protein 7.2 g/dL (6.6-8.7)
--- NOTE | 2021-04-16 05:04 | PC.NURSE ---
SHIFT NOTE patient c/o pain to right ankle most of this shift, new order received for morphine for breakthrough pain. nurse observed that pt is quiet until staff enters room then pt begins moaning and moaning increases the longer staff remains in room. pain meds utilized for pain management
--- NOTE | 2021-04-16 06:53 | PC.NURSE ---
menses started this morning
[2021-04-16] MEDS: aspirin 325 mg EC Tablet PO (07:58)
--- NOTE | 2021-04-16 08:16 | P.PN_ITS ---
Subjective Subjective: Interval history: Still complains of pain right ankle more than left Vitals/I&O/Wt Last Vital Signs Temp 97.5 F L 04/16/21 08:04 Pulse 91 04/16/21 08:04 Resp 19 H 04/16/21 08:04 BP 138/78 04/16/21 08:04 Pulse Ox 98 04/16/21 08:04 04/15/21 04/16/21 04/16/21 22:59 06:59 14:59 Intake Total 2100 / 2150 Output Total 1000 / 1100 2050 / 3150 Balance 1100 / 1050 -2050 / -1000 Weight last 48 hrs Weight 256 lb Physical Exam Narrative: EXAM NARRATIVE: Right ankle in boot. Good capillary refill of digits. Sensation intact toes Urinary Catheter Management^: Garnett: Cath Placed During This Visit: yes Reason for Continuing Indwelling Catheter: Perioperative Use in Selected Surgeries Urinary Catheter Date of Insertion: 04/15/21 Urinary Catheter Time of Insertion: 04:26 Data : 04/16/21 01:58 04/16/21 01:58 Attestations Medical Necessity Statement*: Patient not mobile with walker yet. Discharge when sufficient ambulatory status gained. Coding Level of Care Code Acute Polymer Scientist for Marvin Garcia
--- NOTE | 2021-04-16 11:00 | PC.CHAP ---
Pastoral Care Encounter/Spiritual Assessment Type of Contact [] Declined caddie visit [] Patient/Family/Request visit [] Outpatient visit [] Follow-up visit [] Physician referral [] Code/Alert [x] Routine visit [] Staff referral [] Actively dying [] Patient sleeping [] Family support [] [] Out of room [] Palliative care [] [] Receiving care in room [] Pre-surgical visit [] Trauma [] Long length of stay [] ICU visit [] Other: Relational/Emotional Strength [x] Patient feels connected with others/family/visitors/staff [] Distress [] Loneliness/isolation [] Abandonment Spirituality of Patient [x] Person of Klaudia [] Attends Yazidi of their Klaudia [] Believes in Prayer [] Reads Bible or Moravian materials [] There are Spiritual issues to be addressed Stock Or Delivery Clerk Interventions [x] Prayer [] Active listening [] Non-anxious presence [] Spiritual/emotional support [] Crisis/trauma care [] Spiritual counseling [] Bereavement support [] Provided bereavement packet [] Provided Bible/devotional materials [] Provided toy/stuffed animal, coloring book to patient or family member [] Provided Communion [] Anointing/[place] [] Salvation [] Completed spiritual assessment [] Other: Impact on Illness or Injury [] Angry [] Fearful [] Anxious [] Often cries [] Exhaustion [] Unable to work [] Unable to attend sabianism [] Unable to walk/stand [] Unable to read [] Unable to drive [] Unable to eat/drink [] Unable to sleep [] Unable to be with family [] Patient intubated [] Other: Summary patient has nalots of pain Time spent with patient 10 min
--- NOTE | 2021-04-16 13:49 | P.PN_ITS ---
Subjective Subjective: Interval history: No events overnight. Patient has been requiring pain medications regularly. On examination on entering the room patient lying comfortably in bed sleeping. On waking up patient states she is in pain 6/10. She states she lives with her roommates. They should be able to help her when she goes home. She states family is nearby. Patient has not worked with physical therapy yet. Has remained hemodynamically stable and afebrile. Vitals/I&O/Wt Last Vital Signs Temp 98.7 F 04/16/21 11:37 Pulse 92 04/16/21 11:37 Resp 18 04/16/21 11:37 BP 150/78 04/16/21 11:37 Pulse Ox 99 04/16/21 11:37 04/15/21 04/16/21 04/16/21 22:59 06:59 14:59 Intake Total 2100 / 2150 Output Total 1000 / 1100 2050 / 3150 Balance 1100 / 1050 -2050 / -1000 Weight last 48 hrs Weight 116.12 kg Physical Exam Narrative: EXAM NARRATIVE: General-alert awake and oriented x3 HEENT-grossly unremarkable CVS-normal sinus rhythm Chest-nonlabored respirations Abdomen-soft nontender nondistended Extremities-right lower extremity in surgical splint Urinary Catheter Management^: Garnett: Cath Placed During This Visit: yes Reason for Continuing Indwelling Catheter: Perioperative Use in Selected Surgeries Urinary Catheter Date of Insertion: 04/15/21 Urinary Catheter Time of Insertion: 04:26 Data : 04/16/21 01:58 04/16/21 01:58 A&P Assessment and plan (1) Bimalleolar fracture of right ankle: Status: Acute (2) Syncopal episodes: Status: Acute Bimalleolar fracture with L. tibiotalar joint dislocation: Postoperative day 1. Appreciate orthopedics recommendation. PT/OT evaluation. OxyContin 1 every 8 hours as needed with tramadol 50 every 6 hours as needed. DC Garnett catheter. Weightbearing as per orthopedics. Incentive spirometry. Monitor hemoglobin. Syncopal episode: Etiology unclear. Unlikely seizure as was witnessed. Telemetry has remained stable. Echocardiogram done shows an EF 55 to 60% with normal diastolic filling pressures, trace MR. TSH, A1c within normal limits. Urine drug screen positive for opiates and marijuana. Regular diet. Full dose aspirin for anticoagulation. Early ambulation. Famotidine for PUD prophylaxis. Discharge planning: Will await physical therapy evaluation. We will try to discharge once patient is able to ambulate safely. We will try to see if patient has any needs for safe discharge planning. Discussed with the patient and she states she thinks her roommate will be able to help her at home with her needs at present. She understands she will be nonweightbearing on the right foot. Case management on board. Attestations Medical Necessity Statement*: Patient requires further hospitalization for management of bimalleolar fracture with left tibial talar joint dislocation while safe discharge planning is sought because of nonweightbearing on the right ankle to prevent recurrent fall and worsening of the joint injury Time Spent in Patient Care: Greater than 35 minutes (>than 50% of time sp ent in counselling and/or direct pt care on unit) . Coding Level of Care Code Acute Driver License Examiner for Marvin Garcia Diagnoses Bimalleolar fracture of right ankle S82.841A Syncopal episodes R55
[2021-04-16] MEDS: TRAMadol 50 mg Tablet PO (16:39)
--- NOTE | 2021-04-16 18:00 | XR_ITS ---
WS: [id number] Exam: XR ankle LT min 3V* [id number] Date/Time of Exam: 04/16/2021 7:00 PM Reason For Exam: Lateral ankle pain There is a nondisplaced oblique fracture through the distal fibula. There is also a small posterior s helf fracture of the tibia which is nondisplaced. There is gapping of the medial aspect of the ankle mortise which may indicate ligamentous instability or injury. Soft tissue swelling along the lateral aspect of the ankle. XR/XR ankle LT min 3V* [id number] IMPRESSION: 1. Nondisplaced distal fibular fracture. 2. Small nondisplaced posterior tibial shelf fracture. 3. Asymmetry of the ankle mortise suggesting ligamentous injury or instability.
[2021-04-16] MEDS: HYDROcodone-acetaminophen 5-325 mg Tablet 1 TAB PO ×2 (19:34→23:51)
[2021-04-17] VITALS (20 sets, daily range): BP systolic 96–137; BP diastolic 57–86; PULSE 75–98; RESP 14–20; TEMP 36.4–37.3; O2SAT 96–100
--- NOTE | 2021-04-17 | SCC_ITS ---
Procedure Done: Open reduction internal fixation left lateral malleolus 8.8 seconds of fluoroscopic guidance, for a cumulative dose of 0.20 mGy, was provided to Dr. Ellis by the radiology department. C-arm images of the LEFT ankle were saved for the patient's permanent record. [facility] HOSPITALRosanna
--- NOTE | 2021-04-17 | XR_ITS ---
WS: [id number] Exam: XR ankle LT min 3V* [id number] Date/Time of Exam: 04/17/2021 12:00 AM Reason For Exam: ORIF LEFT ANKLE AP and lateral intraoperative C-arm images of the left ankle are submitted for evaluation. Final images depict plate and screw fixation involving a fracture of the distal fibula. The fracture is in anatomic alignment for healing. Again noted is a small posterior shelf tibial fracture which is nondisplaced. XR/XR ankle LT min 3V* [id number] IMPRESSION: 1. Satisfactory ORIF involving a fracture of the distal fibula.
[2021-04-17] MEDS: HYDROcodone-acetaminophen 5-325 mg Tablet 1 TAB PO ×5 (04:34→22:48)
--- NOTE | 2021-04-17 05:03 | PC.NURSE ---
SHIFT NOTE 2 staff assist with using BSC, requested pain meds every 4 hour and rating pain no less than 9 before and after pain meds, light swelling and bruise to left ankle, able to rotate left ankle without difficulty but c/o severe pain when attempting to stand on left ankle, cam boot to right ankle toes exposed and pink in color, warm to touch and verbalized feeling sensation when toes are touched,
[2021-04-17] MEDS: aspirin 325 mg EC Tablet PO (09:00)
--- NOTE | 2021-04-17 09:17 | P.PN_ITS ---
Subjective Subjective: Interval history: Patient complains of continued pain both right and left ankles. Unable to bear weight on left Vitals/I&O/Wt Last Vital Signs Temp 98.0 F 04/17/21 08:00 Pulse 81 04/17/21 08:00 Resp 14 04/17/21 08:00 BP 123/80 04/17/21 08:00 Pulse Ox 98 04/17/21 08:00 04/16/21 04/17/21 04/17/21 22:59 06:59 14:59 Intake Total 560 / 560 120 / 120 Output Total 100 / 100 Balance 560 / 560 -100 / 460 120 / 120 Physical Exam Narrative: EXAM NARRATIVE: Right ankle immobilized in boot. Still tenderness over left lateral ankle Urinary Catheter Management^: Garnett: Cath Placed During This Visit: yes Reason for Continuing Indwelling Catheter: Perioperative Use in Selected Surgeries Urinary Catheter Date of Insertion: 04/15/21 Urinary Catheter Time of Insertion: 04:26 Data : 04/16/21 01:58 04/16/21 01:58 Xray Ortho: My impression: 3 views of the left ankle are reviewed from 04/17/2021. The patient is a bimalleolar left ankle fracture consisting of a oblique fracture of the lateral malleolus at the level of the joint and a nondisplaced posterior malleolar fracture. A&P Additional A&P Information I discussed the treatment with the patient. This fracture would appear to have some evidence of instability. Her soft tissue envelope is good. I think we would best proceed with open reduction internal fixation of the left ankle. We will make her n.p.o. proceed to the operating room today. Attestations Medical Necessity Statement*: Patient will undergo surgery today and require additional hospitalization. Coding Level of Care Code Acute Infertility Nurse for Marvin Garcia
--- NOTE | 2021-04-17 13:27 | PM.PN ---
Subjective Subjective: Interval history: Patient continues to complain of pain. Unable to bear weight. X-ray shows fracture of the left malleolus. Plan to go to the OR with surgeon today. Vitals/I&O/Wt Last Vital Signs Temp 98.0 F 04/17/21 12:00 Pulse 75 04/17/21 12:00 Resp 18 04/17/21 12:00 BP 116/75 04/17/21 12:00 Pulse Ox 99 04/17/21 12:00 04/16/21 04/17/21 04/17/21 22:59 06:59 14:59 Intake Total 560 / 560 120 / 120 Output Total 100 / 100 Balance 560 / 560 -100 / 460 120 / 120 Physical Exam Narrative: EXAM NARRATIVE: General-alert awake and oriented x3 HEENT-grossly unremarkable CVS-normal sinus rhythm Chest-nonlabored respirations Abdomen-soft nontender nondistended Extremities-right lower extremity in surgical splint Urinary Catheter Management^: Garnett: Cath Placed During This Visit: yes Reason for Continuing Indwelling Catheter: Perioperative Use in Selected Surgeries Urinary Catheter Date of Insertion: 04/15/21 Urinary Catheter Time of Insertion: 04:26 Data : 04/16/21 01:58 04/16/21 01:58 A&P Assessment and plan (1) Trimalleolar fracture of right ankle: Status: Acute (2) Bimalleolar fracture of left ankle: Status: Acute (3) Syncopal episodes: Status: Acute Bimalleolar fracture with L. tibiotalar joint dislocation: Postoperative day 2. Appreciate orthopedics recommendation. Plan for ORIF of left ankle today. [place] every 4 hours as needed. NPO. PT/OT evaluation, antibiotic as per orthopedics, weightbearing as per orthopedics. Incentive spirometry monitor hemoglobin. Syncopal episode: Etiology unclear. Unlikely seizure as fall was witnessed. Could be secondary to excessive pain from fracture in both the ankles on fall. Telemetry has remained stable. Echocardiogram done shows an EF 55 to 60% with normal diastolic filling pressures, trace MR. TSH, A1c within normal limits. Urine drug screen positive for opiates and marijuana. Regular diet. Full dose aspirin for anticoagulation. Early ambulation. Famotidine for PUD prophylaxis. Discharge planning: Given by ankle fracture both healing ORIF patient would need assistance on discharge regarding physical therapy and ADLs for next few weeks. Case management has been alerted. We will work on safe discharge planning. Attestations Medical Necessity Statement*: Requires further hospitalization for management of bimalleolar fracture of the left knee patellar joint dislocation and mandibular fracture while safe discharge planning is sought. Time Spent in Patient Care: Greater than 35 minutes (>than 50% of time spent in counselling and/or direct pt care on unit). Coding Level of Care Code Acute Laser Engraver for Marvin Garcia Diagnoses Trimalleolar fracture of right ankle S82.851A Bimalleolar fracture of left ankle S82.842A Syncopal episodes R55
--- NOTE | 2021-04-17 13:38 | PC.NURSE ---
Surgery Pt taken down in her bed to surgery.
--- NOTE | 2021-04-17 14:51 | P.ANESASSM_ITS ---
Pre-Anesthetic Assessment Pre-Anesthetic Assessment: Height/Weight: Height 1.8 m Weight 116.12 kg Temp Pulse Resp BP Pulse Ox 97.9 F 85 18 126/86 100 04/17/21 13:41 04/17/21 13:41 04/17/21 13:41 04/17/21 13:41 04/17/21 13:41 Preop Diagnosis: Right trimalleolar ankle fracture Proposed Procedure: Operation Date: 04/15/21 12:00 Proposed Procedures p ORIF Ankle(Right) - Zackary Ellis MD Operation Date: 04/17/21 15:45 Proposed Procedures p ORIF Ankle(Left) - Zackary Ellis MD Was Beta Ramírez taken within 24 hours: N/A Was Clonidine taken within 24 hours: N/A Last intake: Intake Last Liquid Date 04/14/21 Last Liquid Time 23:30 Last Solid Date 04/14/21 Last Solid Time 23:30 Social: Social History: No alcohol and No tobacco Exam: Pre-Anes Outpt Exam: alert, oriented x 3, clear to auscultation b ilaterally and regular rate & rhythm Airway: Submandibular: WNL Cervical ROM: WNL MP: 2 Dentition: Full Metabolic: Metabolic: Morbid obesity Anesthetic Plan: ASA status: 2 Anesthesia: General Risk of > 500 ml blood loss (7ml/kg in children): No Meds/Allergies Current Medications: Current Medications Generic Name Dose Route Start Last Admin Trade Name Freq PRN Reason Stop Dose Admin Hydrocodone Bitart /Acetaminophen 1 tab 04/16/21 17:59 04/17/21 13:07 Hydrocodone-Acet aminophen 5-325 Mg Tablet PO 1 tab Q4H PRN Administration MODERATE PAIN Aspirin 325 mg 04/16/21 09:00 04/17/21 09:00 Aspirin 325 Mg E c Tablet PO 325 mg DAILY PATRICE Administration Ondansetron HCl 4 mg 04/15/21 15:06 04/15/21 15:16 Ondansetron 2 Mg /Ml Sdv 2 Ml IVP 4 mg Q4H PRN Administration nausea PFSH Anesthesia PFSH: Medical History (Updated 04/17/21 @ 13:30 by Anthony Gentile MD) Anxiety Depression Data Anesthesia CBC & Chem 7: 04/16/21 01:58 04/16/21 01:58 Other Labs: Laboratory Results - last 48 hr 04/15/21 04/16/21 04/16/21 01:03 01:58 01:58 WBC 12.4 H RBC 4.38 Hgb 12.6 Hct 40.5 MCV 92.5 MCH 28.8 MCHC 31.1 RDW 12.9 Plt Count 194 MPV 10.2 Neut % (Auto) 83.0 Lymph % (Auto) 8.7 Lewis % (Auto) 7.3 Eos % (Auto) 0.2 Baso % (Auto) 0.3 Neut # (Auto) 10.30 H Lymph # (Auto) 1.1 Lewis # (Auto) 0.9 Eos # (Auto) 0.0 Baso # (Auto) 0.0 Nucleated RBC % (auto) 0 Nucleated RBCs # 0.0 Sodium 136 Potassium 4.3 Chloride 100 Carbon Dioxide 23 Anion Gap 17.3 BUN 5 L Creatinine 0.4 L GFR Calculation 201.5 H Glucose 124 H Estimat Average Glucose Hemoglobin A1c Calculated Osmolality 281 L Calcium 9.5 Iron 43 TIBC 312 % Saturation 13.7 L Unsat Iron Binding 269 Total Bilirubin 0.4 AST 8 ALT 9 Alkaline Phosphatase 73 Total Protein 7.2 Albumin 3.8 Globulin 3.4 TSH 1.04 04/16/21 01:58 WBC RBC Hgb Hct MCV MCH MCHC RDW Plt Count MPV Neut % (Auto) Lymph % (Auto) Lewis % (Auto) Eos % (Auto) Baso % (Auto) Neut # (Auto) Lymph # (Auto) Lewis # (Auto) Eos # (Auto) Baso # (Auto) Nucleated RBC % (auto) Nucleated RBCs # Sodium Potassium Chloride Carbon Dioxide Anion Gap BUN Creatinine GFR Calculation Glucose Estimat Average Glucose 114 Hemoglobin A1c 5.6 Calculated Osmolality Calcium Iron TIBC % Saturation Unsat Iron Binding Total Bilirubin AST ALT Alkaline Phosphatase Total Protein Albumin Globulin TSH Cardiac Studies: No Data to Display
--- NOTE | 2021-04-17 15:01 | PM.OP ---
Operative Report Date of procedure: April 17, 2021 Pre-op Diagnosis: Left bimalleolar ankle fracture Post-op diagnosis: same Post-op Findings: Patient had oblique fracture of the left lateral malleolus and associated posterior malleolar fracture Procedure Done: Open reduction internal fixation left lateral malleolus Pathology: none sent Anesthesia: General Estimated blood loss (mL): 10 Tourniquet time (min): 25 Findings: As above Disposition: PACU Procedure: The patient was taken to the operating room and given a general anesthesia. She is given 2 g of Ancef. She is prepped and draped in the supine position with a bump under the left hip. A 5 cm long incision was made from the tip of the lateral malleolus extending proximally. The fracture was identified. It appeared to be an oblique posterior lateral oriented fracture at the joint line. The decision was made to proceed with this with a buttressing posterior plate. A single anterior to posterior 3.5 millimeter screw was placed. A 5 hole semitubular plate was then contoured along the posterior lateral femur. It was fixed proximally with 3 bicortical screws and distally with 2 locking screws. Intraoperative fluoroscopy was used to verify satisfactory position of the hardware. The posterior malleolar fragment appeared to be well aligned. A lateral stress was placed across the ankle with the syndesmosis thought to be stable. The wound was irrigated saline. Deep tissues were closed with 2-0 Vicryl. The skin was closed with skin imani. Xeroflo gauze 4 x 4's web roll and Edward wrap and a postop boot were applied.
--- NOTE | 2021-04-17 15:28 | ANE.PACU2 ---
Inpatient post-anesthesia follow up: Airway intact: Yes Vital signs: Temperature 98.0 F Pulse Rate [Monito r] 100 Pulse Rate 77 Respiratory Rate 19 Blood Pressure 134/69 Pulse Oximetry 96 Oxygen Delivery Me thod Room Air Oxygen Flow Rate 6 Fraction of Inspir ed Oxygen Hydration adequate: Yes Nausea and vomiting: No Pain level: 2 Mental status: Baseline
[2021-04-17] MEDS: ondansetron 2 mg/ML SDV 2 mL 4 MG IVP (16:19)
[2021-04-18] VITALS (10 sets, daily range): BP systolic 107–119; BP diastolic 65–79; PULSE 69–98; RESP 16–18; TEMP 36.5–37.1; O2SAT 95–100
[2021-04-18] MEDS: HYDROcodone-acetaminophen 5-325 mg Tablet 1 TAB PO ×3 (03:49→17:05)
[2021-04-18] MEDS: aspirin 325 mg EC Tablet PO (08:20)
--- NOTE | 2021-04-18 10:27 | PM.PN ---
Subjective Subjective: Interval history: Post left ankle ORIF day 1, Right ankle ORIF day 3. States pain is better as she has not moved much. c/o constipation. Last BM 5 days ago. Denes any N/V, headache, SOB. Discussed need for continuos PT and IS. Vitals/I&O/Wt Last Vital Signs Temp 98.4 F 04/18/21 08:00 Pulse 93 04/18/21 08:00 Resp 17 04/18/21 08:00 BP 108/74 04/18/21 08:00 Pulse Ox 98 04/18/21 08:00 04/17/21 04/18/21 04/18/21 22:59 06:59 14:59 Intake Total 0 / 170 240 / 410 240 / 240 Output Total Balance -1 / 169 240 / 409 240 / 240 Physical Exam Narrative: EXAM NARRATIVE: General-alert awake and oriented x3 HEENT-grossly unremarkable CVS-normal sinus rhythm Chest-nonlabored respirations Abdomen-soft nontender nondistended Extremities-Both legs in surgical splints Urinary Catheter Management^: Garnett: Cath Placed During This Visit: yes Reason for Continuing Indwelling Catheter: Perioperative Use in Selected Surgeries Urinary Catheter Date of Insertion: 04/15/21 Urinary Catheter Time of Insertion: 04:26 Data : 04/16/21 01:58 04/16/21 01:58 A&P Assessment and plan (1) Trimalleolar fracture of right ankle: Status: Acute (2) Bimalleolar fracture of left ankle: Status: Acute (3) Syncopal episodes: Status: Acute Bimalleolar fracture: Post OP day 1 Appreciate orthopedics recommendation. [place] every 8 hours as needed along with tramadol 100 mg Q6h. PT/OT evaluation, antibiotic as per orthopedics, weightbearing as per orthopedics. Incentive spirometry. Monitor hemoglobin. Syncopal episode: Etiology unclear. Unlikely seizure as fall was witnessed. Could be secondary to excessive pain from fracture in both the ankles on fall. Telemetry has remained stable. Echocardiogram done shows an EF 55 to 60% with normal diastolic filling pressures, trace MR. TSH, A1c within normal limits. Urine drug screen positive for opiates and marijuana. Regular diet. Full dose aspirin for anticoagulation. Early ambulation. Famotidine for PUD prophylaxis. Bowel regimen Discharge planning: Given bilateral ankle fracture both needing ORIF patient would need assistance on discharge regarding physical therapy and ADLs for next few weeks. Case management has been alerted. We will work on safe discharge planning. Attestations Medical Necessity Statement*: Requires further hospitalisation for bilateral ankle fracture requiring ORIF while safe discharge planning is sought Time Spent in Patient Care: Greater than 35 minutes (>than 50% of time spent in counselling and/or direct pt care on unit). Coding Level of Care Code Acute Astronomy Department Chair for Marvin Garcia Diagnoses Trimalleolar fracture of right ankle S82.851A Bimalleolar fracture of left ankle S82.842A Syncopal episodes R55
[2021-04-18] MEDS: magnesium hydroxide 30 mL UDC PO (11:21)
[2021-04-18] MEDS: TRAMadol 50 mg Tablet 100 MG PO ×2 (11:21→21:04)
[2021-04-18] MEDS: docusate sodium 100 mg Capsule PO (11:22)
[2021-04-18] MEDS: ferrous gluconate 324 mg Tablet PO (17:04)
[2021-04-19] VITALS (7 sets, daily range): BP systolic 118–129; BP diastolic 73–82; PULSE 72–88; RESP 14–16; TEMP 36.5–37; O2SAT 97–100
[2021-04-19] MEDS: HYDROcodone-acetaminophen 5-325 mg Tablet 1 TAB PO ×3 (01:18→17:39)
[2021-04-19 07:21] LABS: Basophils # 0.1 10^3/uL (0.0-0.1); Basophils % 0.5 %; Eosinophils # 0.1 10^3/uL (0.0-0.8); Eosinophils % 0.5 %; Hemoglobin 11.7 g/dL (11.5-15.3); Lymphocytes # 2.8 10^3/uL (0.8-4.8); Lymphocytes % 28.5 %; Mean Corpuscular HGB Conc 31.6 g/dL (30.0-36.0); Mean Corpuscular Hemoglobin 28.6 pg (28.0-34.0); Mean Corpuscular Volume 90.5 fL (81-99); Mean Platelet Volume 9.9 fL (7.4-10.4); Monocytes # 0.8 10^3/uL (0.2-0.9); Monocytes % 8.2 %; Neutrophils % 61.7 %; Nucleated Red Blood Cells % 0 %; Platelet Count 270 10^3/cmm (130-400); Red Blood Count 4.09 10^6/uL (4.1-5.3); Red Cell Distribution Width 13.2 % (12.1-15.1); White Blood Count 9.9 10^3/uL (4.0-10.0)
[2021-04-19 07:48] LABS: Alanine Aminotransferase 12 U/L (0-33); Albumin Level 3.6 g/dL (3.5-5.2); Alkaline Phosphatase 61 IU/L (35-105); Anion Gap 14.3 (5-19); Aspartate Amino Transferase 11 U/L (0-32); Blood Urea Nitrogen 16 mg/dL (6-20); Calcium 9.1 mg/dL (8.5-10.5); Carbon Dioxide 28 mmol/L (22-29); Chloride 101 mmol/L (98-107); Globulin 3.3 g/dL (1.3-4.6); Glomerular Filtration Rate 155.7 mL/min (90-130); Glucose 94 mg/dL (65-115); Osmolality Calculated 289 mOsm/kg (285-295); Potassium 4.3 mmol/L (3.5-5.1); Sodium 139 mmol/L (136-145); Total Bilirubin 0.4 mg/dL (0.15-1.2); Total Protein 6.9 g/dL (6.6-8.7)
[2021-04-19] MEDS: aspirin 325 mg EC Tablet PO (08:56)
[2021-04-19] MEDS: ferrous gluconate 324 mg Tablet PO ×2 (08:56→17:40)
[2021-04-19] MEDS: docusate sodium 100 mg Capsule PO (13:16)
[2021-04-19] MEDS: magnesium hydroxide 30 mL UDC PO (13:16)
[2021-04-19] MEDS: TRAMadol 50 mg Tablet 100 MG PO (13:23)
--- NOTE | 2021-04-19 13:26 | P.PN_ITS ---
Subjective Subjective: Interval history: No events overnight. Patient continues to remain stable. Awaiting safe discharge planning. Working appropriately with physical therapy as per weightbearing restrictions. Patient will convert with home physical therapy. Learning how to go from bed to commode and making sure she does not put weight on her ankles Vitals/I&O/Wt Last Vital Signs Temp 97.7 F 04/19/21 11:05 Pulse 88 04/19/21 11:05 Resp 16 04/19/21 11:05 BP 129/82 04/19/21 11:05 Pulse Ox 97 04/19/21 11:05 04/18/21 04/19/21 04/19/21 22:59 06:59 14:59 Intake Total 240 / 600 360 / 960 120 / 120 Output Total 150 / 150 900 / 900 Balance 90 / 450 360 / 810 -780 / -780 Physical Exam Narrative: EXAM NARRATIVE: General-alert awake and oriented x3 HEENT-grossly unremarkable CVS-normal sinus rhythm Chest-nonlabored respirations Abdomen-soft nontender nondistended Extremities-Both legs in surgical splints Urinary Catheter Management^: Garnett: Cath Placed During This Visit: yes Reason for Continuing Indwelling Catheter: Perioperative Use in Selected Surgeries Urinary Catheter Date of Insertion: 04/15/21 Urinary Catheter Time of Insertion: 04:26 Data : 04/19/21 06:47 04/19/21 06:47 A&P Assessment and plan (1) Trimalleolar fracture of right ankle: Status: Acute (2) Bimalleolar fracture of left ankle: Status: Acute (3) Syncopal episodes: Status: Acute Lab holiday tomorrow. Bimalleolar fracture: Post OP day 2 Appreciate orthopedics recommendation. [place] every 8 hours as needed along with tramadol 50 mg Q6h as needed. PT/OT evaluation, weightbearing as per orthopedics. Incentive spirometry. Syncopal episode: Etiology unclear. Unlikely seizure as fall was witnessed. Could be secondary to excessive pain from fracture in both the ankles on fall. Telemetry has remained stable. Echocardiogram done shows an EF 55 to 60% with normal diastolic filling pressures, trace MR. TSH, A1c within normal limits. Urine drug screen positive for opiates and marijuana. Regular diet. Full dose aspirin for anticoagulation. Famotidine for PUD prophylaxis. Bowel regimen Discharge planning: Given bilateral ankle fracture both needing ORIF patient would need assistance on discharge regarding physical therapy and ADLs for next few weeks. Case management has been alerted. We will work on safe discharge planning. Attestations Medical Necessity Statement*: Patient requires further hospitalization for bimalleolar bilateral ankle fracture requiring ORIF while safe discharge planning is sought Time Spent in Patient Care: 16 - 35 minutes Coding Level of Care Code Acute Archival Records Clerk for Marvin Fwnazanin Diagnoses Trimalleolar fracture of right ankle S82.851A Bimalleolar fracture of left ankle S82.842A Syncopal episodes R55
[2021-04-19] MEDS: TRAMadol 50 mg Tablet PO (23:52)
[2021-04-20] VITALS (9 sets, daily range): BP systolic 105–149; BP diastolic 63–83; PULSE 73–93; RESP 16–18; TEMP 36.6–36.7; O2SAT 91–99; BMI 34.2
[2021-04-20] MEDS: HYDROcodone-acetaminophen 5-325 mg Tablet 1 TAB PO ×2 (04:52→14:42)
[2021-04-20] MEDS: ferrous gluconate 324 mg Tablet PO ×2 (09:22→17:16)
[2021-04-20] MEDS: aspirin 325 mg EC Tablet PO (09:22)
[2021-04-20] MEDS: TRAMadol 50 mg Tablet PO ×2 (10:19→20:53)
[2021-04-20] MEDS: docusate sodium 100 mg Capsule PO (10:19)
[2021-04-20] MEDS: magnesium hydroxide 30 mL UDC PO (10:19)
--- NOTE | 2021-04-20 11:25 | PM.PN ---
Subjective Subjective: Interval history: No acute events overnight. Status quo. Remains comfortable. Vitals/I&O/Wt Last Vital Signs Temp 98.1 F 04/20/21 11:19 Pulse 82 04/20/21 11:19 Resp 17 04/20/21 11:19 BP 107/63 04/20/21 11:19 Pulse Ox 97 04/20/21 11:19 04/19/21 04/20/21 04/20/21 22:59 06:59 14:59 Intake Total 240 / 360 240 / 240 Output Total 100 / 1300 750 / 2050 Balance 140 / -940 -750 / -1690 240 / 240 Physical Exam Narrative: EXAM NARRATIVE: General-alert awake and oriented x3 HEENT-grossly unremarkable CVS-normal sinus rhythm Chest-nonlabored respirations Abdomen-soft nontender nondistended Extremities-Both legs in surgical splints Urinary Catheter Management^: Garnett: Cath Placed During This Visit: yes Reason for Continuing Indwelling Catheter: Perioperative Use in Selected Surgeries Urinary Catheter Date of Insertion: 04/15/21 Urinary Catheter Time of Insertion: 04:26 Data : 04/19/21 06:47 04/19/21 06:47 A&P Assessment and plan (1) Trimalleolar fracture of right ankle: Status: Acute (2) Bimalleolar fracture of left ankle: Status: Acute (3) Syncopal episodes: Status: Acute Lab holiday tomorrow. Bimalleolar fracture: Post OP day 3 Appreciate orthopedics recommendation. [place] every 8 hours as needed along with tramadol 50 mg Q6h as needed. Pain well controlled for now. PT/OT evaluation, weightbearing as per orthopedics. Incentive spirometry. Syncopal episode: Etiology unclear. Unlikely seizure as fall was witnessed. Could be secondary to excessive pain from fracture in both the ankles on fall. Telemetry has remained stable. Echocardiogram done shows an EF 55 to 60% with normal diastolic filling pressures, trace MR. TSH, A1c within normal limits. Urine drug screen positive for opiates and marijuana. Regular diet. Full dose aspirin for anticoagulation. Famotidine for PUD prophylaxis. Bowel regimen Discharge planning: Given bilateral ankle fracture both needing ORIF patient would need assistance on discharge regarding physical therapy and ADLs for next few weeks. Case management has been alerted. We will ask physical therapy for proper wheelchair training going forward for few weeks depending on weightbearing status as per orthopedics team for safe discharge planning. We will work on safe discharge planning. Attestations Medical Necessity Statement*: Requires further hospitalization for postop care and physical therapy for bimalleolar fracture of bilateral ankles while safe discharge planning is sought. Time Spent in Patient Care: Greater than 35 minutes (>than 50% of time spent in counselling and/or direct pt care on unit). Coding Level of Care Code Acute Equal Opportunity Director for Marvin Garcia Diagnoses Trimalleolar fracture of right ankle S82.851A Bimalleolar fracture of left ankle S82.842A Syncopal episodes R55
[2021-04-21] VITALS (8 sets, daily range): BP systolic 115–135; BP diastolic 76–85; PULSE 67–91; RESP 14–16; TEMP 36.6–37.1; O2SAT 96–100
[2021-04-21] MEDS: HYDROcodone-acetaminophen 5-325 mg Tablet 1 TAB PO ×2 (03:39→14:52)
[2021-04-21] MEDS: ferrous gluconate 324 mg Tablet PO ×2 (08:43→17:49)
[2021-04-21] MEDS: aspirin 325 mg EC Tablet PO (08:43)
[2021-04-21] MEDS: TRAMadol 50 mg Tablet PO (08:43)
--- NOTE | 2021-04-21 15:59 | P.PN_ITS ---
Subjective Subjective: Interval history: No acute events overnight. Status quo. Remains comfortable. Vitals/I&O/Wt Last Vital Signs Temp 98.4 F 04/21/21 15:44 Pulse 79 04/21/21 15:44 Resp 16 04/21/21 15:44 BP 130/78 04/21/21 15:44 Pulse Ox 99 04/21/21 15:44 04/21/21 04/21/21 04/21/21 06:59 14:59 22:59 Intake Total 720 / 720 Balance 720 / 720 Weight last 48 hrs Weight 111.584 kg Weight 111.584 kg Physical Exam Const: COMMON NORMALS: patient oriented x3 HENMT: COMMON NORMALS: normocephalic and atraumatic HEAD & SCALP: normocephalic and atraumatic Resp: COMMON NORMALS: clear to auscultation bilaterally AUSCULTATION: clear to auscultation bilaterally Cardio: COMMON NORMALS: regular rate, regular rhythm, S1 normal heart sound present, S2 normal heart sound present, No gallops present (Cardio), No murmurs present (Cardio), No rub (Cardio) and Peripheral pulses 2+ throughout RATE: r egular rate RHYTHM: regular rhythm HEART SOUNDS: S1 normal heart sound present and S2 normal heart sound present PERIPHERAL PULSES: Peripheral pulses 2+ throughout GI: COMMON NORMALS: Normal to inspection, nondistended, normoactive bowel sounds present, Soft to palpation, non-tender, No hepatosplenomegaly present and no masses AUSCULTATION: Yes normoactive bowel sounds PALPATION: Yes Soft to palpation and Yes No hepatosplenomegaly present RECTAL EXAM: deferred Extremity: NARRATIVE EXTREMITY EXAM: Both legs in surgical splints Neuro: COMMON NORMALS: patient oriented x3 Urinary Catheter Management^: Garnett: Cath Placed During This Visit: yes Reason for Continuing Indwelling Catheter: Perioperative Use in Selected Surgeries Urinary Catheter Date of Insertion: 04/15/21 Urinary Catheter Time of Insertion: 04:26 Data : 04/19/21 06:47 04/19/21 06:47 A&P Assessment and plan (1) Trimalleolar fracture of right ankle: Status: Acute (2) Bimalleolar fracture of left ankle: Status: Acute (3) Syncopal episodes: Status: Acute Lab holiday tomorrow. Bimalleolar fracture: Post OP day 3 Appreciate orthopedics recommendation. [place] every 8 hours as needed along with tramadol 50 mg Q6h as needed. Pain wel l controlled for now. PT/OT evaluation, weightbearing as per orthopedics. Incentive spirometry. Syncopal episode: Etiology unclear. Unlikely seizure as fall was witnessed. Could be secondary to excessive pain from fracture in both the ankles on fall. Telemetry has remained stable. Echocardiogram done shows an EF 55 to 60% with normal diastolic filling pressures, trace MR. TSH, A1c within normal limits. Urine drug screen positive for opiates and marijuana. Regular diet. Full dose aspirin for anticoagulation. Famotidine for PUD prophylaxis. Bowel regimen Discharge planning: Given bilateral ankle fracture both needing ORIF patient would need assistance on discharge regarding physical therapy and ADLs for next few weeks. Case management has been alerted. We will ask physical therapy for proper wheelchair training going forward for few weeks depending on weightbearing status as per orthopedics team for safe discharge planning. We will work on safe discharge planning. Attestations Medical Necessity Statement*: Patient is currently awaiting safe placement. Coding Level of Care Code Acute Economics Faculty Member for Marvin Garcia Diagnoses Trimalleolar fracture of right ankle S82.851A Bimalleolar fracture of left ankle S82.842A Syncopal episodes R55
[2021-04-22 00:30] VITALS: BP 127/84; PULSE 83; RESP 16; TEMP 36.6; O2SAT 97
[2021-04-22] MEDS: ondansetron 2 mg/ML SDV 2 mL 4 MG IVP (00:38)
[2021-04-22] MEDS: HYDROcodone-acetaminophen 5-325 mg Tablet 1 TAB PO (00:44)
[2021-04-22 04:25] VITALS: BP 126/79; PULSE 60; RESP 16; TEMP 36.5; O2SAT 98
[2021-04-22 06:00] VITALS: PULSE 52
[2021-04-22 07:38] VITALS: BP 107/74; PULSE 75; RESP 18; TEMP 36.8; O2SAT 98
[2021-04-22] MEDS: ferrous gluconate 324 mg Tablet PO (07:59)
[2021-04-22] MEDS: aspirin 325 mg EC Tablet PO (07:59)
--- NOTE | 2021-04-22 09:53 | P.DS_ITS ---
Discharge Providers Date of Admission: 04/15/21 15:48 Date of Discharge: April 22, 2021 Attending Provider at Admission: Gabi Egan Attending Provider at Discharge: Andrey Olmos MD Diagnoses at Discharge Discharge Diagnosis (1) Trimalleolar fracture of right ankle: Status: Acute (2) Bimalleolar fracture of left ankle: Status: Acute (3) Syncopal episodes: Status: Resolved Reason for Visit Reason for Visit: FALL Hospital Course Hospital Course 21 year old female With a past medical history significant for anxiety, partial dizziness with prior episode of syncope who presented to the hospital with syncopal event and right lower extremity pain. Patient stated that while in the kitchen making dinner she became very nauseous and lightheaded. She went to sit down however Does not recall any events afterwards. She was told by her friend that she had tripped over her dog and fell. Loss of consciousness lasted briefly. No seizure-like activity. On arrival an right ankle x-ray showed a lateral malleolus fracture with angulation, medially displaced medial malleolar fracture and a lateral dislocation at the tibiotalar joint. Orthopedic surgery was consulted. Prior to that patient's this location was reduced after rece iving Dilaudid and ketamine. Laboratory workup showed a WBC of 13.0, hemoglobin 12.4, hematocrit 38.9 and a platelet count of 232. Sodium 138, potassium 3.7, chloride 101, bicarb 23, BUN 9 and creatinine is 0.7. Urinary drug screen positive for opioids and marijuana. Urinalysis was negative. She was admitted for the management of Bimalleolar fracture of right ankle as well as Trimalleolar fracture of right ankle. S/p ORIF. She was kept on pain control , PT OT evaluation was done weightbearing as per orthopedics. She was kept on aspirin 325 mg p.o. daily for anticoagulation. Syncopal episode: Etiology unclear. Telemetry has remained stable. Echocardiogram done shows an EF 55 to 60% with normal diastolic filling pressures, trace MR. TSH, A1c within normal limits. physical therapy provided proper wheelchair training going forward for few weeks depending on weightbearing status as per orthopedics team for safe discharge planning. Patient was discharged home. Patient will follow with Dr. Ellis as an outpatient. Physical Exam Const: COMMON NORMALS: patient oriented x3 HENMT: COMMON NORMALS: normocephalic and atraumatic HEAD & SCALP: normocephalic and atraumatic Resp: COMMON NORMALS: clear to auscultation bilaterally AUSCULTATION: clear to auscultation bilaterally Cardio: COMMON NORMALS: regular rate, regular rhythm, S1 normal heart sound present, S2 normal heart sound present, No gallops present (Cardio), No murmurs present (Cardio), No rub (Cardio) and Peripheral pulses 2+ throughout RATE: regular rate RHYTHM: regular rhythm HEART SOUNDS: S1 normal heart sound present and S2 normal heart sound present PERIPHERAL PULSES: Peripheral pulses 2+ throughout GI: COMMON NORMALS: Normal to inspection, nondistended, normoactive bowel sounds present, Soft to palpation, non-tender, No hepatosplenomegaly present and no masses AUSCULTATION: Yes normoactive bowel sounds PALPATION: Yes Soft to palpation and Yes No hepatosplenomegaly present RECTAL EXAM: deferred Extremity: NARRATIVE EXTREMITY EXAM: Both legs in surgical splints Neuro: COMMON NORMALS: patient oriented x3 Urinary Catheter Management^: Garnett: Cath Placed During This Visit: yes, but has since been removed by the nurse Reason for Continuing Indwelling Catheter: Perioperative Use in Selected Surgeries Urinary Catheter Date of Insertion: 04/15/21 Urinary Catheter Time of Insertion: 04:26 Date Urinary Catheter Removed: 04/20/21 Time Urinary Catheter Discontinued: 08:00 Discharge Data Data Completed and Pending: Completed Studies During Hospitalization Category Date Time Status XR ankle LT min 3 V* [id number] Routine Exams 04/16/21 18:00 Completed XR ankle LT min 3 V* [id number] Routine Exams 04/17/21 Completed XR ankle RT 2V 73 600 Routine Exams 04/15/21 Completed XR ankle RT 2V 73 600 Urgent Exams 04/15/21 02:39 Completed XR ankle RT min 3 V* [id number] Stat Exams 04/15/21 01:00 Completed CV echo complete* [id number] Routine Ultrasound 04/15/21 05:06 Completed Vitals: Last Vital Signs Temp 98.3 F 04/22/21 07:38 Pulse 75 04/22/21 07:38 Resp 18 04/22/21 07:38 BP 107/74 04/22/21 07:38 Pulse Ox 98 04/22/21 07:38 Discharge Plan Discharge Patient Disposition: Home Condition: Stable Prescriptions: New hydrocodone-acetaminophen 5-325 mg Tablet 1 tab PO Q8H PRN (Reason: Severe Pain) 15 Days Qty: 30 RF: 0 tramadol 50 mg Tablet 50 mg PO Q6H PRN (Reason: Moderate Pain) 15 Days Qty: 30 RF: 0 aspirin 325 mg Tablet,Delayed Release (Dr/Ec) 325 mg PO DAILY 30 Days Qty: 30 RF: 0 Continued No Known Home Medications RF: 0 Discharge Orders: Discharge Order (Routine); Ordered 04/22/21 Ordered By: Andrey Olmos Referrals: Zackary Ellis MD [Physician] - 05/06/21 2:15 pm Discharge Diet: Regular Discharge Activity: Resume usual activity Patient Instructions: Hydrocodone/Acetaminophen (By mouth), Aspirin (By mouth), Tramadol (By mouth), Ankle Fracture (GEN), Opioid Safety Activity Restrictions/Additional Instructions: Please call Patient Account at [phone] to follow up on your financial management analyst application. Discharge Attestations Time Spent in Discharge Care*: less than 30 min Specific Discharge Activities: educating patient, educating and/or supporting family/caregiver, discussing with pcp/other providers, discussing with case management associate/social workers/dc planners, documenting/other paperwork and evaluating patient/reviewing data Status at Discharge: Cognitive status at discharge: cognitively intact , Behavioral status at discharge: cooperative , Functional status at discharge: independent ambulation Overall status at discharge: patient is back to baseline Quality Metrics Clinical Quality Measures During this hospital stay, did patient experience: None Coding Level of Care Code Acute Chg FW DC note Exam Detailed Diagnoses Trimalleolar fracture of right ankle S82.851A Bimalleolar fracture of left ankle S82.842A Syncopal episodes R55
[2021-04-22 11:36] VITALS: BP 112/71; PULSE 84; RESP 18; TEMP 36.6; O2SAT 98
== END 2021-04-22 12:05 | disposition home or self-care (01) | DRG 494 ==
LOC: ER 02:19 → MEDSURG 03:04
PROVIDERS: Orthopaedic Surgery; Student in an Organized Health Care Education/Training Program; Admitting Provider Hospitalist; Emergency Provider Emergency Medicine; Visit Provider Internal Medicine
PROC: 0QSJ04Z Reposition Right Fibula with Internal Fixation Device, Open Approach (ICD-10-PCS; principal; 2021-04-15 12:00)
PROC: 0QSK04Z Reposition Left Fibula with Internal Fixation Device, Open Approach (ICD-10-PCS; principal; 2021-04-17 15:35)
DX: S82.851A Displaced trimalleolar fracture of right lower leg, initial encounter for closed fracture (principal); S82.842A Displaced bimalleolar fracture of left lower leg, initial encounter for closed fracture; W01.0XXA Fall on same level from slipping, tripping and stumbling without subsequent striking against object, initial encounter; F41.9 Anxiety disorder, unspecified; R55 Syncope and collapse
CPT/HCPCS: 27810; 36415; 51702; 73600; 73610; 76000; 80048; 80053; 80306; 81003; 81025; 83036; 83540; 83550; 84443; 85025; 93005; 93306; 96374; 97110; 97161; 97165; 97530; 97535; 99285; C1713; G0378; J0690; J1170; J2250; J2270; J2405; J2704; J2710; J3010; J3490; J7030

== ENCOUNTER → 2021-05-27 13:57 | Outpatient (BNVA) | payer SELFPAY | PROVIDERS: Visit Provider Orthopaedic Surgery | DX: Z48.89 Encounter for other specified surgical aftercare (principal); Z98.890 Other specified postprocedural states | CPT/HCPCS: 73610 ==

== ENCOUNTER → 2021-07-09 13:09 | Outpatient (BNVA) | payer SELFPAY | PROVIDERS: Visit Provider Orthopaedic Surgery | DX: Z48.89 Encounter for other specified surgical aftercare (principal) | CPT/HCPCS: 73610 ==

== ENCOUNTER → 2024-01-06 15:58 | Outpatient (BNVA) | payer BC, SELFPAY | PROVIDERS: PCP Nurse Practitioner; Visit Provider Nurse Practitioner | DX: Z12.4 Encounter for screening for malignant neoplasm of cervix (principal) | CPT/HCPCS: 88175 ==

== ENCOUNTER 2024-06-26 12:05 | Outpatient (CLI) | payer BC, SELFPAY ==
--- NOTE | 2024-06-26 12:08 | MR_ITS ---
WS: [id number] MRI LUMBAR SPINE NONCONTRAST HISTORY: LUMBAR PAIN/OTHER INTERVERTEBRAL DISC DISPLACEMENT COMPARISON: None available. TECHNIQUE: Sagittal and axial multisequence imaging is submitted. On the sagittal localizer there is an area of increased T2 hyperintensity in the central cervical cor d centered at C7 extending over a length of 10 mm. This is most likely a small syrinx. Straightening of the normal lumbar lordosis. Disc spaces are narrowed and significantly desiccated at L4-5 and L5-S1. Conus terminates normally at T12-L1 disc level. L1-L2: Mild annular disc bulging with mild bilateral foraminal stenosis. L2-L3: Mild annular disc bulging, ligamentum flavum and facet arthritis. Mild central, bilateral suba rticular recess and moderate foraminal stenosis. L3-L4: Mild annular disc bulging encroaching upon the ventral thecal sac. Ligamentum flavum and facet arthritis. Mild central with mild bilateral subarticular recess and foraminal stenosis, RIGHT greate r than LEFT. L4-L5: Large central disc protrusion displacing and deforming the thecal sac. Nerve roots are being d isplaced posteriorly. Disc protrusion is disc greater to the RIGHT. There is significant deformity up on the L5 nerve roots. Mild bilateral foraminal stenosis. Severe central and subarticular recess sten osis. L5-S1: Mild annular disc bulging with a moderate size central disc protrusion and osteophytic ridging . Moderate central, bilateral subarticular recess and mild foraminal stenosis. Paravertebral soft tissues are negative. MR/MR lumbar spine wo con* [id number] IMPRESSION: 1. Short segment cervical syrinx at C7 extends over a length of 10 mm. Recomme nd follow-up cervical spine MRI with and without contrast. 2. Significant disc desiccation at L4-5 and L5-S1. 3. L4-5: Large central disc protrusion effacing and deforming the thecal sac a nd nerve roots. There is significant central and bilateral foraminal stenosis. 4. L5-S1: Moderate-sized central disc protrusion with osteophytic ridging. Mod erate central, bilateral subarticular recess stenosis. 5. Mild bilateral foraminal stenosis at L4-5 and L5-S1. 6. L2-3: Mild central, bilateral subarticular recess and moderate foraminal st enosis. 7. L3-4: Mild central with mild bilateral subarticular recess and foraminal st enosis.
== END 2024-06-26 12:06 | disposition home or self-care (01) ==
LOC: RAD 12:05
PROVIDERS: PCP Nurse Practitioner; Visit Provider Nurse Practitioner
DX: M51.26 Other intervertebral disc displacement, lumbar region (principal); S14.127A Central cord syndrome at C7 level of cervical spinal cord, initial encounter; M51.36 Other intervertebral disc degeneration, lumbar region; M25.78 Osteophyte, vertebrae; M99.63 Osseous and subluxation stenosis of intervertebral foramina of lumbar region; M51.27 Other intervertebral disc displacement, lumbosacral region; M51.37 Other intervertebral disc degeneration, lumbosacral region
CPT/HCPCS: 72148

== ENCOUNTER → 2025-02-15 10:45 | Outpatient (BNVA) | payer BC, SELFPAY | PROVIDERS: PCP Nurse Practitioner; Visit Provider Nurse Practitioner | DX: S86.912A Strain of unspecified muscle(s) and tendon(s) at lower leg level, left leg, initial encounter (principal); X58.XXXA Exposure to other specified factors, initial encounter | CPT/HCPCS: 73562 ==

== ENCOUNTER → 2025-10-31 10:24 | Outpatient (BNVA) | payer BC, SELFPAY | PROVIDERS: PCP Nurse Practitioner; Visit Provider Nurse Practitioner | DX: J02.9 Acute pharyngitis, unspecified (principal) | CPT/HCPCS: 87071; 87486; 87581; 87633; 87880 ==